=== PATIENT | female | born 1940 | race Caucasian/White ===

== ENCOUNTER 2016-11-28 10:49 | Emergency (ER) | payer MEDICARE ==
--- NOTE | 2016-11-28 12:07 | PICIS ---
[facility] EMERGENCY RECORD TRIAGE ([facility] Nov 28, 2016 10:54 KMOR) TRIAGE NOTES: Flu shot on Wed, cough started on , low grade fever last night. ([facility] Nov 28, 2016 10:54 KMOR) PATIENT: NAME: Nella Overton, AGE: 76, GENDER: female, : Wed1940, TIME OF GREET: WedNov 28, 2016 10:50, PREFERRED LANGUAGE: Yakut, ETHNICITY: Not or , ECODE BILLING MAP: [facility], SSN: [id number], Zip Code: [address], KG WEIGHT: 95.25, PHONE: , , , PERSON ID: [id number], PAYMENT: X Medicare, PCP: Anu OCONNOR KRISTI. ([facility] Nov 28, 2016 10:54 KMOR) COMPLAINT: cold symptoms. ([facility] Nov 28, 2016 10:54 KMOR) ADMISSION: URGENCY: 4 Non Urgent, ADMISSION SOURCE: Home, TRANSPORT: CAR, BED: ER -02. ([facility] Nov 28, 2016 10:54 KMOR) ASSESSMENT: Assessment: A&OX4. RR EVEN AND UNLABORED., Symptoms began 2 days ago. (10:58 KMOR) PAIN: Patient complains of pain described as, aching, on a scale 0-10 patient rates pain as 7, Location THROAT. (10:58 KMOR) IMMUNIZATIONS: Flu vaccine up to date, Tetanus not up to date, Pneumococcal vaccine up to date. (10:58 KMOR) SIRS SCORING: Heart Rate 55-109 (0), Temp range 96.8-101.1 (0), respiratory rate 12-24 (0), Mental Status altered: no (0), Infection or Suspected Infection: No. (10:58 KMOR) TRIAGE SCREENING: Patient denies suicidal ideation, Patient denies presence of domestic violence. (10:58 KMOR) LMP: LMP: Menopause. (10:58 KMOR) PROVIDERS: TRIAGE NURSE: Eva Juarez RN. ([facility] Nov 28, 2016 10:54 KMOR) VITAL SIGNS: BP 112/74, Pulse 72, Resp 18, Temp 98.2, (Oral), Pain 5, O2 Sat 98, on Room Air, Time 11/28/2016 10:54. (10:54 KMOR) PREVIOUS VISIT ALLERGIES: No Known Drug Allergies. (Sat Nov 28, 2016 10:54 KMOR) No Known Drug Allergies. (10:58 KMOR) KNOWN ALLERGIES No Known Drug Allergies CURRENT MEDICATIONS (11:50 KMOR) Unable to obtain VITAL SIGNS (10:54 KMOR) VITAL SIGNS: BP: 112/74, Pulse: 72, Resp: 18, Temp: 98.2 (Oral), Pain: 5, O2 sat: 98 on Room Air, Time: 11/28/2016 10:54. NURSING ASSESSMENT: ENT (11:02 KMOR) CONSTITUTIONAL: Patient arrives ambulatory, Gait steady, History obtained from patient, Patient appears comfortable, Patient cooperative, Patient alert, Oriented to person, place and time, Skin warm, Skin dry, Skin normal in color, Mucous membranes pink, Mucous membranes moist, Patient is well-groomed, Patient complains of Cold symptoms, Patient reports congestion, fullness in ears, sore &a-1R&a+25V*p+0X*e2598X*c152B*c15G*c2P*p-0X&a-25V&a+1RName: TianJoanmiquel Stone : F76 MedRec: [id number] AcctNum: [id number] Prepared: Aneta Nov 29, 2016 06:15 by Interface Page 1 of 6 pMD [facility] EMERGENCY RECORD throat and low grade fever started 2 days ago, Reports recent flu shot. PAIN: aching pain, to the throat, on a scale 0-10 patient rates pain as 5. ENT: Ear assessment findings include ear normal to inspection, Nasal assessment findings include nose normal to inspection, Sinuses normal, Nasal mucosa normal, Congestion, bilaterally, Mouth and throat assessment findings include mouth inspection normal, Uvula normal, Tonsils normal, Mucous membranes pink, and moist, Able to swallow, Speech normal, no associated fever, no associated headache. RESPIRATORY/CHEST: Breath sounds clear, Respiratory assessment findings include respiratory effort easy, Respirations regular, Conversing normally, Neck and chest exam findings include trachea midline, Chest expansion equal, Chest movement symmetrical, no signs of distress, Associated with cough, dry. NOTES: Patient tolerated procedure well. NURSING PROCEDURE: DISCHARGE NOTE (11:50 KMOR) DISCHARGE: Patient discharged to home, ambulating without assistance, family driving, accompanied by //partner, Summary of Care printed/ provided, Transition record given to patient, Discharge instructions given to patient, Simple or moderate discharge teaching performed, by TIM Velasquez, Discharge instructions and follow up reviewed with patient. Pt ambulatory to discharge desk., Prescriptions given and instructions on side effects given, Name of prescription(s) given: TAMIFLU, TESSALON, Above person(s) verbalized understanding of discharge instructions and follow-up care. BELONGINGS: Belongings remain with patient, Valuables remain with patient. NURSING PROCEDURE: ENT (11:08 KMOR) PATIENT IDENTIFIER: Patient actively involved in identification process, Patient's identity verified by patient stating name, Patient's identity verified by patient stating date. ENT: Nasal swab collected, labeled in the presence of the patient and sent to lab for testing of, influenza A, influenza B, collected by Dr. Galloway. NOTES: Patient tolerated procedure well. ORDER DETAILS Order Name: Influenza A&B Ag Screen, Status: Active, Time: 11:06 11/28/2016, User: [facility], - Ordered for: DO Galloway William, - Entered by: DO Galloway William - [facility] Nov 28, 2016 11:06, - Quantity: 1. HPI FLU-LIKE SYNDROME (11:06 [facility]) CHIEF COMPLAINT: Patient presents for evaluation of body &a-1R&a+25V*p+0X*j8176S*c152B*c15G*c2P*p-0X&a-25V&a+1RName: Nella Overton : F76 MedRec: [id number] AcctNum: [id number] Prepared: Aneta Nov 29, 2016 06:15 by Interface Page 2 of 6 pMD [facility] EMERGENCY RECORD aches, Patient presents for evaluation of fatigue, Denies fever, Patient presents for evaluation of upper respiratory infection. HISTORIAN: History provided by patient. LOCATION: Symptoms are generalized. TIME COURSE: Gradual onset of symptoms, 2, days priror to arrival. ASSOCIATED WITH: Associated with cough, non-productive, No associated headache. EXACERBATED BY: Patient's condition exacerbated by nothing. RELIEVED BY: Patient's condition relieved by nothing. IMMUNIZATION STATUS: Flu vaccine up to date, Date of immunization: 11/25/2016 11:07. ROS (11:07 WMEI) CONSTITUTIONAL: Historian reports fatigue, denies fever. EYES: Historian denies eye pain, denies eye discharge. ENT: Historian denies otalgia, reports rhinorrhea, reports sore throat. CARDIOVASCULAR: Historian denies chest pain, no radiation. RESPIRATORY: Historian reports cough, denies shortness of breath, denies sputum. GI: Historian denies abdominal pain, denies nausea, denies vomiting. GENITOURINARY FEMALE: Historian denies dysuria, denies urgency. MUSCULOSKELETAL: Historian denies joint swelling, reports myalgias. SKIN: Historian denies skin changes, denies skin lesions. NEUROLOGIC: Historian denies focal weakness, denies mental status changes. PSYCHIATRIC: Historian denies alcohol abuse, denies emotional lability, denies mood changes. PAST MEDICAL HISTORY (10:58 KMOR) MEDICAL HISTORY: Notes: "nerve things", Flu vaccine up to date, Tetanus not up to date, Pneumococcal vaccine up to date, Past medical history includes cardiac history, cardiomyopathy, Past medical history includes history of hypertension, which has been treated, Patient is compliant. FEMALE SURGICAL HISTORY: Right knee replacement, cataracts, back surgery. PSYCHIATRIC HISTORY: No previous psychiatric history. SOCIAL HISTORY: Patient drinks every day, less than 5 drinks per day, Patient denies drug use, Patient has no smoking history. PHYSICAL EXAM (11:08 WMEI) CONSTITUTIONAL: Vital signs reviewed, Patient appears non toxic, Patient alert and oriented to person, place and time. HEAD: Head exam included findings of head atraumatic. EYES: Conjunctiva normal, Sclera normal. ENT: Ear exam normal, Nose exam included findings of, &a-1R&a+25V*p+0X*z6708V*c152B*c15G*c2P*p-0X&a-25V&a+1RName: Nella Overton : F76 MedRec: [id number] AcctNum: [id number] Prepared: Aneta Nov 29, 2016 06:15 by Interface Page 3 of 6 pMD [facility] EMERGENCY RECORD rhinnorhea. NECK: Neck exam included findings of normal range of motion, Trachea midline. RESPIRATORY CHEST: Respiratory exam included findings of no respiratory distress, Breath sounds clear, Chest exam included findings of chest movement symmetrical. CARDIOVASCULAR: Cardiovascular exam included findings of heart rate regular rate and rhythm, Heart sounds normal. ABDOMEN FEMALE: Abdominal exam included findings of abdomen nontender, Liver normal, Spleen normal. BACK: Back exam included findings of normal inspection, range of motion normal, no tenderness, no costovertebral angle tenderness. UPPER EXTREMITY: Upper extremity exam included findings of inspection normal, Range of motion normal, Motor strength normal. LOWER EXTREMITY: Lower extremity exam included findings of inspection normal, Range of motion normal, Motor strength normal. NEURO: Daniel coma scale 15, Neuro exam findings include patient oriented to person, place and time, Speech normal, Gait normal. SKIN: Skin exam included findings of skin warm, dry, and normal in color. LYMPHATIC: Lymphatic exam normal. PSYCHIATRIC: Psychiatric exam included findings of patient oriented to person place and time, Normal affect, Judgment normal, Insight normal. LAB INTERPRETATION (11:40 WMEI) INTERPRETATION: I reviewed the lab results, Influenza, positive for influenza A. EVENTS TRANSFER: Triage to Emergency Emergency Room -02. (10:54 KMOR) Removed from Emergency Emergency Room -02. (11:53 KMOR) PROBLEM LIST No recorded problems DIAGNOSIS (11:40 WMEI) FINAL: PRIMARY: influenza. DISPOSITION PATIENT: Disposition Type: Discharge, Disposition: *Discharge Home. (11:40 WMEI) Patient left the department. (11:53 KMOR) INSTRUCTION (11:40 WMEI) DISCHARGE: FLU ADULT. FOLLOWUP: [facility]RISTI[facility] [id number] [phone]. SPECIAL: Follow-up with your primary physician as needed. PRESCRIPTION (11:39 WMEI) &a-1R&a+25V*p+0X*f7270L*c152B*c15G*c2P*p-0X&a-25V&a+1RName: Nella Overton : F76 MedRec: [id number] AcctNum: [id number] Prepared: Aneta Nov 29, 2016 06:15 by Interface Page 4 of 6 pMD [facility] EMERGENCY RECORD Tamiflu: CAPSULE : 75 mg : ORAL : Quantity: 1 Unit: cap(s) Route: ORAL Schedule: 2 times a day Dispense: 10 Unit: cap(s) May substitute. Refills: No Refills . NOTES: No refills. Tessalon: CAPSULE : 200 mg : ORAL : Quantity: 1 Unit: tab(s) Route: ORAL Schedule: every 8 hours PRN Dispense: 21 Unit: tab(s) May substitute. Refills: No Refills . NOTES: No refills. IMAGING (11:52 KMOR) *DISCHARGE INSTRUCTIONS RECEIPT: Image captured from scanner. *SUPPLY CHARGE SHEET: Image captured from scanner. ADMIN DIGITAL SIGNATURE: TIM Juarez, Eva. (11:52 KMOR) DO Galloway William. ([place] Nov 29, 2016 06:03 [facility]) RESULTS (11:37 KMOR) MICROBIOLOGY: Influenza A&B Ag Screen: [id number] Collection DT: Sat Nov 28, 2016 11:34, See comment below , @ ER ROOM#: ER-02 Source: Nasal swab Spec Desc: , *Influenza A Antigen: POSITIVE for the , * presence of , * INFLUENZA A Antigen , * - H , Influenza B Antigen: NEGATIVE for the , presence of , INFLUENZA B Antigen , The rapid Flu A&B test can distinguish between influenza A , Influenza A&B Ag Screen See comment below , and B viruses, but it does not differentiate influenza , Influenza A&B Ag Screen See comment below , subtypes. , Influenza A&B Ag Screen See comment below , Influenza A&B Ag Screen See comment below , Influenza A&B Ag Screen See comment below , Influenza A&B Ag Screen See comment below , characteristics of this device with human specimens infected , Influenza A&B Ag Screen See comment below , with the 2009 H1N1 influenza virus have not been , Influenza A&B Ag Screen See comment below , established. For example: this test cannot distinguish , Influenza A&B Ag Screen See comment below , influenza infections caused by novel H1N1 influenza A , Influenza A&B Ag Screen See comment below , viruses versus seasonal influenza A viruses. , Influenza A&B Ag Screen See comment below , , Influenza A&B Ag Screen See comment below , A negative result does &a-1R&a+25V*p+0X*y2262Y*c152B*c15G*c2P*p-0X&a-25V&a+1RName: Nella Overton : F76 MedRec: [id number] AcctNum: [id number] Prepared: Aneta Nov 29, 2016 06:15 by Interface Page 5 of 6 pMD [facility] EMERGENCY RECORD not exclude influenza virus , Influenza A&B Ag Screen See comment below , infection; therefore, if more conclusive testing is desired, , Influenza A&B Ag Screen See comment below , follow up confirmatory testing is warranted., Influenza A&B Ag Screen See comment below . Hammonds: KMOR=TIM Juarez, Eva WMEI=DO Galloway William &a-1R&a+25V*p+0X*k5714Q*c152B*c15G*c2P*p-0X&a-25V&a+1RName: Nella Overton : F76 MedRec: [id number] AcctNum: [id number] Prepared: Aneta Nov 29, 2016 06:15 by Interface Page 6 of 6 pMD [facility]
--- NOTE | 2016-11-28 12:07 | ERRECORD ---
[facility] EMERGENCY RECORD HPI FLU-LIKE SYNDROME (11:06 WMEI) CHIEF COMPLAINT: Patient presents for evaluation of body aches, Patient presents for evaluation of fatigue, Denies fever, Patient presents for evaluation of upper respiratory infection. HISTORIAN: History provided by patient. LOCATION: Symptoms are generalized. TIME COURSE: Gradual onset of symptoms, 2, days priror to arrival. ASSOCIATED WITH: Associated with cough, non-productive, No associated headache. EXACERBATED BY: Patient's condition exacerbated by nothing. RELIEVED BY: Patient's condition relieved by nothing. IMMUNIZATION STATUS: Flu vaccine up to date, Date of immunization: 11/25/2016 11:07. ROS (11:07 WMEI) CONSTITUTIONAL: Historian reports fatigue, denies fever. EYES: Historian denies eye pain, denies eye discharge. ENT: Historian denies otalgia, reports rhinorrhea, reports sore throat. CARDIOVASCULAR: Historian denies chest pain, no radiation. RESPIRATORY: Historian reports cough, denies shortness of breath, denies sputum. GI: Historian denies abdominal pain, denies nausea, denies vomiting. GENITOURINARY FEMALE: Historian denies dysuria, denies urgency. MUSCULOSKELETAL: Historian denies joint swelling, reports myalgias. SKIN: Historian denies skin changes, denies skin lesions. NEUROLOGIC: Historian denies focal weakness, denies mental status changes. PSYCHIATRIC: Historian denies alcohol abuse, denies emotional lability, denies mood changes. PAST MEDICAL HISTORY (10:58 KMOR) MEDICAL HISTORY: Notes: "nerve things", Flu vaccine up to date, Tetanus not up to date, Pneumococcal vaccine up to date, Past medical history includes cardiac history, cardiomyopathy, Past medical history includes history of hypertension, which has been treated, Patient is compliant. FEMALE SURGICAL HISTORY: Right knee replacement, cataracts, back surgery. PSYCHIATRIC HISTORY: No previous psychiatric history. SOCIAL HISTORY: Patient drinks every day, less than 5 drinks per day, Patient denies drug use, Patient has no smoking history. KNOWN ALLERGIES No Known Drug Allergies CURRENT MEDICATIONS (11:50 KMOR) &a-1R&a+25V*p+0X*a3650P*c152B*c15G*c2P*p-0X&a-25V&a+1RName: Nella Overton : F76 MedRec: [id number] AcctNum: [id number] Prepared: Aneta Nov 29, 2016 06:09 by Interface Page 1 of 3 pMD [facility] EMERGENCY RECORD Unable to obtain VITAL SIGNS (10:54 KMOR) VITAL SIGNS: BP: 112/74, Pulse: 72, Resp: 18, Temp: 98.2 (Oral), Pain: 5, O2 sat: 98 on Room Air, Time: 11/28/2016 10:54. PHYSICAL EXAM (11:08 WMEI) CONSTITUTIONAL: Vital signs reviewed, Patient appears non toxic, Patient alert and oriented to person, place and time. HEAD: Head exam included findings of head atraumatic. EYES: Conjunctiva normal, Sclera normal. ENT: Ear exam normal, Nose exam included findings of, rhinnorhea. NECK: Neck exam included findings of normal range of motion, Trachea midline. RESPIRATORY CHEST: Respiratory exam included findings of no respiratory distress, Breath sounds clear, Chest exam included findings of chest movement symmetrical. CARDIOVASCULAR: Cardiovascular exam included findings of heart rate regular rate and rhythm, Heart sounds normal. ABDOMEN FEMALE: Abdominal exam included findings of abdomen nontender, Liver normal, Spleen normal. BACK: Back exam included findings of normal inspection, range of motion normal, no tenderness, no costovertebral angle tenderness. UPPER EXTREMITY: Upper extremity exam included findings of inspection normal, Range of motion normal, Motor strength normal. LOWER EXTREMITY: Lower extremity exam included findings of inspection normal, Range of motion normal, Motor strength normal. NEURO: [place] coma scale 15, Neuro exam findings include patient oriented to person, place and time, Speech normal, Gait normal. SKIN: Skin exam included findings of skin warm, dry, and normal in color. LYMPHATIC: Lymphatic exam normal. PSYCHIATRIC: Psychiatric exam included findings of patient oriented to person place and time, Normal affect, Judgment normal, Insight normal. PROBLEM LIST No recorded problems DIAGNOSIS (11:40 WMEI) FINAL: PRIMARY: influenza. PRESCRIPTION (11:39 WMEI) Tamiflu: CAPSULE : 75 mg : ORAL : Quantity: 1 Unit: cap(s) Route: ORAL Schedule: 2 times a day Dispense: 10 Unit: cap(s) May substitute. Refills: No Refills . NOTES: No refills. Tessalon: CAPSULE : 200 mg : ORAL : Quantity: 1 Unit: tab(s) Route: ORAL Schedule: every 8 hours PRN Dispense: 21 &a-1R&a+25V*p+0X*u5633A*c152B*c15G*c2P*p-0X&a-25V&a+1RName: Nella Overton : F76 MedRec: [id number] AcctNum: [id number] Prepared: Aneta Nov 29, 2016 06:09 by Interface Page 2 of 3 pMD [facility] EMERGENCY RECORD Unit: tab(s) May substitute. Refills: No Refills . NOTES: No refills. DISPOSITION PATIENT: Disposition Type: Discharge, Disposition: *Discharge Home. (11:40 WMEI) Patient left the department. (11:53 KMOR) Hammonds: KMOR=TIM Juarez, Eva WMEI=DO Galloway William &a-1R&a+25V*p+0X*n8500M*c152B*c15G*c2P*p-0X&a-25V&a+1RName: Nella Overton : F76 MedRec: [id number] AcctNum: [id number] Prepared: Aneta Nov 29, 2016 06:09 by Interface Page 3 of 3 pMD MTDD
== END 2016-11-28 11:45 | disposition home or self-care (01) ==
LOC: BURERS 10:49
DX: J11.1 Influenza due to unidentified influenza virus with other respiratory manifestations (principal); I42.9 Cardiomyopathy, unspecified; I10 Essential (primary) hypertension
CPT/HCPCS: 99283

== ENCOUNTER 2017-03-11 09:34 | Outpatient (CLI) | payer MEDICARE ==
[2017-03-11 09:54] LABS: #Basophils 0.1 thou/uL (0.0-0.2); #Eosinphils 0.3 thou/uL (0.0-0.7); #Lymphocytes 1.7 thou/uL (1.20-3.40); #Monocytes 0.6 thou/uL (0.11-0.59); #Neutrophils 5.3 thou/uL (1.40-6.50); %Basophils 1.1 % (0.0-1.0); %Eosinophils 4.2 % (0.0-10.0); %Lymphocytes 20.9 % (21.0-51.0); %Monocytes 6.9 % (0.0-10.0); %Neutrophils 66.9 % (42.0-75.0); Hemoglobin 13.7 g/dL (12.0-16.0); Mean Corpuscular HGB CONC 32.4 g/dL (32.0-36.0); Mean Corpuscular Hemoglobin 29.8 pg (27.0-31.0); Mean Corpuscular Volume 91.8 fl (81.0-99.0); Platelet Count 331 thou/uL (130-400); Red Blood Cell (RBC) Count 4.62 mill/uL (4.20-5.40)
[2017-03-11 10:54] LABS: Hemoglobin A1c 5.8 % (4.0-6.0)
[2017-03-11 10:59] LABS: ALT (SGPT) 22 U/L (8-55); AST (SGOT) 22 U/L (5-34); Albumin 4.1 g/dL (3.4-4.8); Alkaline Phosphatase 85 U/L (40-150); Anion Gap 16 mmol/L (10-20); BUN (Urea Nitrogen) 7 mg/dL (9.8-20.1); Bilirubin, Total 0.7 mg/dL (0.2-1.2); Calc. Creatinine Clearance 0 mL/min (70-130); Calcium 9.8 mg/dL (7.8-10.44); Carbon Dioxide 24 mmol/L (23-31); Cardiac Risk 2.2 (Less than 4.5); Chloride 96 mmol/L (98-107); Cholesterol 170 mg/dl (< 200 Desired); Estimated GFR-MDRD 65; Globulin 3.2 g/dL (2.4-3.5); Glucose 121 mg/dL (83-110); HDL Cholesterol 77 mg/dL (>60 Neg Risk); LDL Cholesterol, Calculated 78 mg/dL; Potassium 4.8 mmol/L (3.5-5.1); Protein, Total 7.3 g/dL (6.0-8.3); Sodium 131 mmol/L (136-145); Triglycerides 74 mg/dL (Less than 150)
--- NOTE | 2017-03-11 20:56 | RAD ---
CHEST TWO VIEWS 03/11/17 Comparison is made with a 02/05/14 study. Mild cardiomegaly is certainly no worse than before. There is no congestive change or pleural effusi on. No lobar pulmonary infiltrate was seen. The lungs are clear. The trachea is midline. There are extensive degenerative changes in the mid thoracic spine. Some arteriosclerotic change is seen in the aorta. IMPRESSION: Chronic changes as noted but no acute findings. POS: HOME
== END 2017-03-11 09:35 | disposition home or self-care (01) ==
LOC: BURLAB 09:34 → BURRAD 09:35
PROVIDERS: ATTEND Internal Medicine Cardiovascular Disease
DX: E78.4 Other hyperlipidemia (principal); I35.8 Other nonrheumatic aortic valve disorders; I42.9 Cardiomyopathy, unspecified; I10 Essential (primary) hypertension; E11.65 Type 2 diabetes mellitus with hyperglycemia; R06.89 Other abnormalities of breathing
CPT/HCPCS: 36415; 71020; 80053; 80061; 83036; 83880; 85025

== ENCOUNTER 2018-05-10 09:10 | Outpatient (CLI) | payer MEDICARE ==
[2018-05-10 17:36] LABS: #Basophils 0.1 thou/uL (0.0-0.2); #Eosinphils 0.6 thou/uL (0.0-0.7); #Monocytes 0.8 thou/uL (0.11-0.59); #Neutrophils 5.6 thou/uL (1.40-6.50); %Basophils 0.9 % (0.0-1.0); %Lymphocytes 22.2 % (21.0-51.0); %Monocytes 8.3 % (0.0-10.0); %Neutrophils 61.5 % (42.0-75.0); Hemoglobin 12.8 g/dL (12.0-16.0); Mean Corpuscular HGB CONC 32.8 g/dL (32.0-36.0); Mean Corpuscular Hemoglobin 30.4 pg (27.0-31.0); Mean Corpuscular Volume 92.5 fL (78.0-98.0); Mean Platelet Volume 7.7 fL (7.4-10.4); Platelet Count 304 thou/uL (130-400); RBC Distribution Width 12.6 % (11.5-14.5); White Blood Cell (WBC) Count 9.1 thou/uL (4.8-10.8)
[2018-05-10 17:52] LABS: ALT (SGPT) 13 U/L (8-55); AST (SGOT) 17 U/L (5-34); Albumin 4.2 g/dL (3.4-4.8); Alkaline Phosphatase 88 U/L (40-150); Anion Gap 12 mmol/L (10-20); BUN (Urea Nitrogen) 10 mg/dL (9.8-20.1); Bilirubin, Total 0.4 mg/dL (0.2-1.2); Calc. Creatinine Clearance 0 mL/min (70-130); Calcium 9.5 mg/dL (7.8-10.44); Carbon Dioxide 28 mmol/L (23-31); Cardiac Risk 2.3 (Less than 4.5); Chloride 97 mmol/L (98-107); Cholesterol 178 mg/dl (< 200 Desired); Estimated GFR-MDRD 74; Globulin 2.6 g/dL (2.4-3.5); Glucose 126 mg/dL (83-110); HDL Cholesterol 76 mg/dL (>60 Neg Risk); LDL Cholesterol, Calculated 88 mg/dL; Potassium 4.8 mmol/L (3.5-5.1); Protein, Total 6.8 g/dL (6.0-8.3); Sodium 132 mmol/L (136-145); Triglycerides 71 mg/dL (Less than 150)
--- NOTE | 2018-05-10 18:36 | RAD ---
CHEST TWO VIEWS: 05/10/18 Comparison is made with a 03/11/17 study. The heart size is unchanged and stable. There is no vascular congestion, edema, or pleural effusion. The lungs are clear. A faint calcification near the greater tubercle of the right shoulder may be ind icative of calcific tendonitis. IMPRESSION: No acute thoracic finding. POS: HOME
== END 2018-05-10 09:11 | disposition home or self-care (01) ==
LOC: BURRAD 09:10
PROVIDERS: ATTEND Internal Medicine Cardiovascular Disease
DX: I42.9 Cardiomyopathy, unspecified (principal); I35.8 Other nonrheumatic aortic valve disorders; E78.4 Other hyperlipidemia; I10 Essential (primary) hypertension; E11.65 Type 2 diabetes mellitus with hyperglycemia
CPT/HCPCS: 36415; 71046; 80053; 80061; 83036; 85025

== ENCOUNTER 2018-09-24 11:45 | Emergency (ER) | payer MEDICARE | END 2018-09-24 12:26 | disposition home or self-care (01) | LOC: BURERS 11:45 | DX: B02.9 Zoster without complications (principal); I10 Essential (primary) hypertension; Z79.899 Other long term (current) drug therapy | CPT/HCPCS: 99282 ==

== ENCOUNTER 2019-09-08 13:13 | Outpatient (CLI) | payer MEDICARE ==
--- NOTE | 2019-09-08 15:39 | RAD ---
CHEST 2 VIEWS: Date: 09/08/19 Comparison is made with the 05/10/18 study. The heart is mildly enlarged, but unchanged in size. There is no vascular congestion, edema, or pleur al effusion. The lungs are clear and the trachea is midline. Degenerative changes are noted in the sp ine as usual. IMPRESSION: Mild cardiomegaly with little change since 2018. POS: HOME
[2019-09-08 16:23] LABS: #Eosinphils 0.3 thou/uL (0.0-0.7); #Monocytes 0.5 thou/uL (0.11-0.59); #Neutrophils 4.3 thou/uL (1.40-6.50); %Basophils 0.4 % (0.0-1.0); %Eosinophils 3.9 % (0.0-10.0); %Lymphocytes 28.6 % (21.0-51.0); %Monocytes 6.4 % (0.0-10.0); %Neutrophils 60.6 % (42.0-75.0); Hemoglobin 13.7 g/dL (12.0-16.0); Mean Corpuscular HGB CONC 32.2 g/dL (32.0-36.0); Mean Corpuscular Hemoglobin 30.2 pg (27.0-31.0); Mean Platelet Volume 8.4 fL (7.4-10.4); Platelet Count 319 thou/uL (130-400); RBC Distribution Width 12.7 % (11.5-14.5); Red Blood Cell (RBC) Count 4.53 mill/uL (4.20-5.40)
[2019-09-08 16:51] LABS: ALT (SGPT) 10 U/L (8-55); AST (SGOT) 13 U/L (5-34); Albumin 4.2 g/dL (3.4-4.8); Alkaline Phosphatase 99 U/L (40-110); Anion Gap 12 mmol/L (10-20); BUN (Urea Nitrogen) 6 mg/dL (9.8-20.1); Bilirubin, Total 0.6 mg/dL (0.2-1.2); Calc. Creatinine Clearance 0 mL/min (70-130); Calcium 9.8 mg/dL (7.8-10.44); Carbon Dioxide 28 mmol/L (23-31); Cardiac Risk 2.4 (Less than 4.5); Chloride 102 mmol/L (98-107); Cholesterol 165 mg/dl (< 200 Desired); Estimated GFR-MDRD 74; Globulin 2.8 g/dL (2.4-3.5); Glucose 120 mg/dL (83-110); HDL Cholesterol 68 mg/dL (>60 Neg Risk); LDL Cholesterol, Calculated 81 mg/dL; Potassium 4.9 mmol/L (3.5-5.1); Sodium 137 mmol/L (136-145); Triglycerides 78 mg/dL (Less than 150)
[2019-09-08 17:12] LABS: Free Thyroxine Index 2.01 (1.4-3.1); T4 6.9 ug/dL (4.87-11.72); Thyroid Stimulating Hormone 1.2952 uIU/mL (0.35-4.94)
== END 2019-09-08 13:14 | disposition home or self-care (01) ==
LOC: BUREKG 13:13
PROVIDERS: ATTEND Internal Medicine Cardiovascular Disease
DX: I10 Essential (primary) hypertension (principal); E78.5 Hyperlipidemia, unspecified; E11.65 Type 2 diabetes mellitus with hyperglycemia; I35.8 Other nonrheumatic aortic valve disorders; E27.2 Addisonian crisis; R73.09 Other abnormal glucose; I42.8 Other cardiomyopathies; I51.7 Cardiomegaly; Z79.899 Other long term (current) drug therapy
CPT/HCPCS: 36415; 71046; 80053; 80061; 83036; 83880; 84436; 84443; 84479; 85025